=== PATIENT | female | born 1955 ===

== ENCOUNTER 2017-02-09 20:57 | Observation (INO) | payer MEDICAID, OTHER ==
[2017-02-09] MEDS ORDERED: Sodium Chloride 0.9% 1,000 ML IV ONE (22:29)
--- NOTE | 2017-02-09 22:49 | EDM.PDOC ---
ED HPI GENERAL MEDICAL PROBLEM - General Chief Complaint: Gastrointestinal Problem Stated Complaint: FEVER/TROBULE BREATHING/COUGH Time Seen by Provider: 02/09/17 22:30 Source of Information: Reports: Patient History Limitations: Reports: No Limitations - History of Present Illness INITIAL COMMENTS - FREE TEXT/NARRATIVE: History of present illness: [61-year-old female comes in complaining of generalized aches, pains and malaise. Patient acute she's had a cough and thinks might have the flu. Patient is quite hypotensive at 72/50. Patient has a strong odor of urine and stool. Patient is conversant, makes complete sentences and is appropriate. Review of systems: As per history of present illness and below otherwise all systems reviewed and negative. Past medical history: As per history of present illness and as reviewed below otherwise noncontributory. Surgical history: As per history of present illness and as reviewed below otherwise noncontributory. Social history: No reported history of drug or alcohol abuse. Family history: As per history of present illness and as reviewed below otherwise noncontributory. Physical exam: HEENT: Atraumatic, normocephalic, pupils reactive, negative for conjunctival pallor or scleral icterus, mucous membranes moist, throat clear, neck supple, nontender, trachea midline. Lungs: Clear to auscultation, breath sounds equal bilaterally, chest nontender. Heart: S1S2, regular, negative for clicks, rubs, or JVD. Abdomen: Soft, nondistended, nontender. Negative for masses or hepatosplenomegaly. Negative for costovertebral tenderness. Pelvis: Stable nontender. Genitourinary: Deferred. Rectal: Deferred. Extremities: Atraumatic, negative for cords or calf pain. Neurovascular unremarkable. Neuro: Awake, alert, oriented. Cranial nerves II through XII unremarkable. Cerebellum unremarkable. Motor and sensory unremarkable throughout. Exam nonfocal. Patient acknowledges smoking but denies drinking. Patient indicates that she has just recently lost control of her bladder and bowel on this is a new evolution for her with her generalized well-being. Patient responded well to the first liter of normal saline with systolic rising above the 100 systolically, 2nd liter normal saline started at [address] Eddi Fitch called patient admitted to observation status secondary to hypotension rule out sepsis Diagnostics: [CBC, CMP, lactic acid, blood cultures, UA, chest x-ray troponin amylase, lipase ] Therapeutics: [2 L of normal saline, Zofran] Impression: [Hypotension rule out sepsis] Plan: [Admit for observation] Definitive disposition and diagnosis as appropriate pending reevaluation and review of above. 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: Musculoskeletal History: Reports: None Neurological History: Reports: None Psychiatric History: Reports: None Endocrine/Metabolic History: Reports: Hypothyroidism Hematologic History: Reports: None Dermatologic History: Reports: None - Infectious Disease History Infectious Disease History: Reports: Chicken Pox - Past Surgical History Female Surgical History: Reports: None Social & Family History - Family History Family Medical History: Noncontributory - Tobacco Use Smoking Status *Q: Never Smoker - Recreational Drug Use Recreational Drug Use: No ED ROS GENERAL - Review of Systems Review Of Systems: See Below (History of present illness) ED EXAM, GENERAL - Physical Exam Exam: See Below (History of present illness) Course - Vital Signs Last Recorded V/S: Last Vital Signs Temp 37.1 C 02/09/17 22:29 Pulse 86 02/10/17 00:05 Resp 17 02/10/17 00:05 BP 110/52 L 02/10/17 00:05 Pulse Ox 94 L 02/10/17 00:08 - Orders/Labs/Meds Orders: Active Orders 24 hr Category Date Time Status Admission Status [Patient Status] [ADT] Stat ADT 02/10/17 00:13 Ordered EKG Documentation Completion [RC] STAT Care 02/09/17 22:46 Active Chest 1V Frontal [CR] Stat Exams 02/09/17 22:46 Taken CULTURE BLOOD [BC] Stat Lab 02/09/17 22:38 Received CULTURE BLOOD [BC] Stat Lab 02/09/17 22:48 Received TROPONIN I [CHEM] Stat Lab 02/09/17 23:06 Ordered UA W/MICROSCOPIC [URIN] Stat Lab 02/09/17 22:30 Uncollected Piperacillin/Tazobactam [Piperacil-Tazobact] 3.375 gm Med 02/10/17 00:12 Ordered Sodium Chloride 0.9% [Normal Saline] 50 ml IV ONETIME Sodium Chloride 0.9% [Normal Saline] 1,000 ml Med 02/10/17 00:00 Active IV STAT Blood Culture x2 Reflex Set [OM.PC] Stat Oth 02/09/17 22:29 Ordered Medication Orders Sodium Chloride (Normal Saline) 1,000 mls @ 125 mls/hr IV STAT ONE Stop: 02/10/17 07:59 Last Admin: 02/10/17 00:04 Dose: 125 mls/hr Piperacillin Sod/Tazobactam (Sod 3.375 gm/ Sodium Chloride) 50 mls @ 100 mls/ hr IV ONETIME ONE Stop: 02/10/17 00:41 Labs: Laboratory Tests 02/09/17 02/09/17 02/09/17 Range/Units 22:48 22:48 22:48 WBC 2.30 L (4.0-11.0) K/uL RBC 4.48 (4.30-5.90) M/uL Hgb 12.6 (12.0-16.0) g/dL Hct 38.6 (36.0-46.0) % MCV 86.2 (80.0-98.0) fL MCH 28.1 (27.0-32.0) pg MCHC 32.6 (31.0-37.0) g/dL RDW Std Deviation 43.7 (28.0-62.0) fl RDW Coeff of Eduin 14 (11.0-15.0) % Plt Count 132 L (150-400) K/uL MPV 10.70 (7.40-12.00) fL Add Manual Diff YES Neutrophils % (Manual) 57 (48.0-80.0) % Band Neutrophils % 2 % Lymphocytes % (Manual) 37 (16.0-40.0) % Monocytes % (Manual) 4 (0.0-15.0) % Nucleated RBC % 0.0 /100WBC Absolute Seg Neuts 1.3 L (1.4-5.7) Band Neutrophils # 0 Lymphocytes # (Manual) 0.9 (0.6-2.4) Monocytes # (Manual) 0.1 (0.0-0.8) Nucleated RBCs # 0 K/uL Lactate 0.8 (0.20-2.00) mmol/L Sodium 140 (136-146) mmol/L Potassium 3.9 (3.5-5.1) mmol/L Chloride 106 (98-110) mmol/L Carbon Dioxide 23 (21-31) mmol/L BUN 10 (6.0-23.0) mg/dL Creatinine 0.7 (0.6-1.5) mg/dL Est Cr Clr Drug Dosing 77.01 mL/min Estimated GFR (MDRD) > 60.0 ml/min Glucose 96 (60-110) mg/dL Hemoglobin A1c (0.0-6.0) % Calcium 8.7 L (8.8-10.8) mg/dL Total Bilirubin 0.4 (0.1-1.5) mg/dL AST 14 (5-40) IU/L ALT 10 (8-54) IU/L Alkaline Phosphatase 62 (40-150) Creatine Kinase (9-236) IU/L CK-MB (CK-2) (0-6.6) ng/ml Troponin I (0.0-0.29) NG/ML Total Protein 5.9 L (6.0-8.0) g/dL Albumin 3.9 (3.4-4.8) g/dL Globulin 2.0 (2.0-3.5) g/dL Albumin/Globulin Ratio 2.0 (1.3-2.8) 02/09/17 02/09/17 Range/Units 22:48 22:48 WBC (4.0-11.0) K/uL RBC (4.30-5.90) M/uL Hgb (12.0-16.0) g/dL Hct (36.0-46.0) % MCV (80.0-98.0) fL MCH (27.0-32.0) pg MCHC (31.0-37.0) g/dL RDW Std Deviation (28.0-62.0) fl RDW Coeff of Eduin (11.0-15.0) % Plt Count (150-400) K/uL MPV (7.40-12.00) fL Add Manual Diff Neutrophils % (Manual) (48.0-80.0) % Band Neutrophils % % Lymphocytes % (Manual) (16.0-40.0) % Monocytes % (Manual) (0.0-15.0) % Nucleated RBC % /100WBC Absolute Seg Neuts (1.4-5.7) Band Neutrophils # Lymphocytes # (Manual) (0.6-2.4) Monocytes # (Manual) (0.0-0.8) Nucleated RBCs # K/uL Lactate (0.20-2.00) mmol/L Sodium (136-146) mmol/L Potassium (3.5-5.1) mmol/L Chloride (98-110) mmol/L Carbon Dioxide (21-31) mmol/L BUN (6.0-23.0) mg/dL Creatinine (0.6-1.5) mg/dL Est Cr Clr Drug Dosing mL/min Estimated GFR (MDRD) ml/min Glucose (60-110) mg/dL Hemoglobin A1c 5.5 (0.0-6.0) % Calcium (8.8-10.8) mg/dL Total Bilirubin (0.1-1.5) mg/dL AST (5-40) IU/L ALT (8-54) IU/L Alkaline Phosphatase (40-150) Creatine Kinase 74 (9-236) IU/L CK-MB (CK-2) 0.6 (0-6.6) ng/ml Troponin I 0.21 (0.0-0.29) NG/ML Total Protein (6.0-8.0) g/dL Albumin (3.4-4.8) g/dL Globulin (2.0-3.5) g/dL Albumin/Globulin Ratio (1.3-2.8) Meds: Medications Generic Name Dose Route Start Last Admin Trade Name Freq PRN Reason Stop Dose Admin Sodium Chloride 1,000 mls @ 125 mls/hr 02/10/17 00:00 02/10/17 00:04 Normal Saline IV 02/10/17 07:59 125 mls/hr STAT ONE Administration Piperacillin Sod/Tazobactam 50 mls @ 100 mls/hr 02/10/17 00:12 Sod 3.375 gm/ Sodium Chloride IV 02/10/17 00:41 ONETIME ONE Discontinued Medications Generic Name Dose Route Start Last Admin Trade Name Freq PRN Reason Stop Dose Admin Sodium Chloride 1,000 mls @ 999 mls/hr 02/09/17 22:29 02/09/17 22:56 Normal Saline IV 02/09/17 23:29 999 mls/hr STAT ONE Administration Departure - Departure Time of Disposition: 00:16 Disposition: Refer to Observation Condition: Good Clinical Impression: Hypotension - Discharge Information Referrals: PCP,None [Primary Care Provider] - Forms: ED Department Discharge - My Orders Last 24 Hours: My Active Orders 02/09/17 22:29 Blood Culture x2 Reflex Set [OM.PC] Stat 02/09/17 22:30 UA W/MICROSCOPIC [URIN] Stat 02/09/17 22:38 CULTURE BLOOD [BC] Stat 02/09/17 22:48 CULTURE BLOOD [BC] Stat 02/09/17 23:06 TROPONIN I [CHEM] Stat 02/10/17 00:00 Sodium Chloride 0.9% [Normal Saline] 1,000 ml IV STAT 02/10/17 00:12 Piperacillin/Tazobactam [Piperacil-Tazobact] 3.375 gm Sodium Chloride 0.9% [ Normal Saline] 50 ml IV ONETIME 02/10/17 00:13 Admission Status [Patient Status] [ADT] Stat - Assessment/Plan Last 24 Hours: My Active Orders 02/09/17 22:29 Blood Culture x2 Reflex Set [OM.PC] Stat 02/09/17 22:30 UA W/MICROSCOPIC [URIN] Stat 02/09/17 22:38 CULTURE BLOOD [BC] Stat 02/09/17 22:48 CULTURE BLOOD [BC] Stat 02/09/17 23:06 TROPONIN I [CHEM] Stat 02/10/17 00:00 Sodium Chloride 0.9% [Normal Saline] 1,000 ml IV STAT 02/10/17 00:12 Piperacillin/Tazobactam [Piperacil-Tazobact] 3.375 gm Sodium Chloride 0.9% [ Normal Saline] 50 ml IV ONETIME 02/10/17 00:13 Admission Status [Patient Status] [ADT] Stat
[2017-02-09 23:33] LABS: CHLORIDE,CL 106 mmol/L (98-110); SODIUM,NA 140 mmol/L (136-146)
[2017-02-10] MEDS ORDERED: Sodium Chloride 0.9% 1,000 ML IV ONE
[2017-02-10] MEDS ORDERED: Piperacillin/Tazobactam 3.375 GM in Sodium Chloride 0.9% 50 ML IV ONE (00:12)
[2017-02-10] MEDS: Sodium Chloride 0.9% 1,000 ML IV SCH ×3 (01:11→17:09)
[2017-02-10 06:04] LABS: CHLORIDE,CL 112 mmol/L (98-110); SODIUM,NA 142 mmol/L (136-146)
[2017-02-10] MEDS: Piperacillin/Tazobactam 3.375 GM in Sodium Chloride 0.9% 50 ML IV SCH ×3 (07:49→23:46)
--- NOTE | 2017-02-10 08:59 | PCM.HP ---
H&P History of Present Illness - General Date of Service: 02/10/17 Admit Problem/Dx: Admission Diagnosis/Problem Admission Diagnosis/Problem Hypotension Source of Information: Patient History Limitations: Reports: No Limitations - History of Present Illness Initial Comments - Free Text/Narative: This 61 year old female with pmh of hypothyroidism presented to the ED last evening with her brother with complaints of general malaise myalgias and URI symptoms. She reports she was feeling well until Monday after work. She felt exhausted and very sore. She reports laying in bed most of the week and not eating much because she didn't feel hungry and didn't feel well. She reports she had some fevers and chills at home. With cough and running nose. She reports she did not receive the influenza vaccine this year. She works at [employer] and is around many people every day. She denies abdominal pain, black or bloody BMs, no urinary symptoms. No sore throat no ear pain and no chest pain. She reports some shortness of breath with ambulation, which is new. Non productive cough. In the ED leukopenia noted, 2,300, platelets 132, Lymph 43%, Lactate 0.8, BMP WNL. UA negative and CXR negative as well. She was noted to be hypotension, 79/ 32 upon arrival to ED, which improved to 107/48 with 1 L bolus. BC were obtained. She was given Zosyn for suspected bacterial pneumonia and influenza swab was negative. 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 Denies: CAD, Heart Failure , Hypertension, [place] Respiratory History: Reports: None. Denies: Asthma, Croup, PE Gastrointestinal History: Reports: None. 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 Denies: Diabetes, Type II Hematologic History: Reports: None Dermatologic History: Reports: None - Infectious Disease History Infectious Disease History: Reports: Chicken Pox - Past Surgical History Female Surgical History: Reports: None Social & Family History - Family History Family Medical History: Noncontributory - Tobacco Use Smoking Status *Q: Current Every Day Smoker Years of Tobacco use: 40 Packs/Tins Daily: 0.5 Used Tobacco, but Quit: No - Caffeine Use Caffeine Use: Reports: Coffee - Recreational Drug Use Recreational Drug Use: Yes - Living Situation & Occupation Occupation: Employed H&P Review of Systems - Review of Systems: Review Of Systems: See Below General: Reports: Fever, Chills, Malaise, Weakness, Fatigue, Decreased Appetite HEENT: Reports: Rhinitis, Sinus Congestion. Denies: Headaches, Hearing Changes , Sore Throat, Visual Changes Pulmonary: Reports: Shortness of Breath, Cough. Denies: Wheezing, Sputum, Hemoptysis Cardiovascular: Reports: No Symptoms. Denies: Chest Pain, Palpitations, Orthopnea, Edema, Lightheadedness Gastrointestinal: Reports: No Symptoms. Denies: Abdominal Pain, Black Stool, Bloody Stool, Distension, Nausea, Vomiting Genitourinary: Reports: No Symptoms. Denies: Dysuria, Frequency, Burning, Pain , Urgency Musculoskeletal: Reports: No Symptoms. Denies: Neck Pain Psychiatric: Reports: No Symptoms. Denies: Confusion Neurological: Reports: No Symptoms. Denies: Confusion Hematologic/Lymphatic: Reports: Easy Bruising Exam - Exam Exam: See Below - Vital Signs Vital Signs: Last Vital Signs Temp 97.6 F 02/10/17 04:00 Pulse 84 02/10/17 04:00 Resp 18 02/10/17 04:00 BP 106/42 L 02/10/17 04:00 Pulse Ox 96 02/10/17 04:00 Weight: 68.03 kg - Exam Quality Assessment: DVT Prophylaxis. No: Supplemental Oxygen General: Alert, Oriented, Cooperative HEENT: Conjunctiva Clear, Mucosa Moist & [place], Posterior Pharynx Clear, Rhinitis (nares, reddened due to constant wiping of nose.) Neck: Supple, Trachea Midline, Full Range of Motion. No: Lymphadenopathy Lungs: Rhonchi (throughout), Other (dry hacking cough) Cardiovascular: Regular Rate, Regular Rhythm, Normal S1, Normal S2 GI/Abdominal Exam: Normal Bowel Sounds, Soft, Non-Tender, No Organomegaly, No Distention, No Abnormal Bruit, No Mass, Pelvis Stable Back Exam: Normal Inspection, Full Range of Motion, NT Extremities: Normal Inspection, Normal Range of Motion, Non-Tender, No Pedal Edema, Normal Capillary Refill Skin: Petechia (2 .5 in areas noted to L dorsal hand, reports these happened a couple days ago. It tends to happen and she is not sure any injury.) Neuro Extensive - Mental Status: Alert, Oriented x3, Normal Mood/Affect, Normal Cognition Psychiatric: Alert, Normal Affect, Normal Mood - Patient Data Lab Results Last 24 hrs: Laboratory Results - last 24 hr 02/10/17 02/10/17 02/10/17 Range/Units 00:42 04:39 04:39 WBC 1.79 L (4.0-11.0) K/uL RBC 4.09 L (4.30-5.90) M/uL Hgb 11.2 L (12.0-16.0) g/dL Hct 35.4 L (36.0-46.0) % MCV 86.6 (80.0-98.0) fL MCH 27.4 (27.0-32.0) pg MCHC 31.6 (31.0-37.0) g/dL RDW Std Deviation 43.9 (28.0-62.0) fl RDW Coeff of Eduin 14 (11.0-15.0) % Plt Count 114 L (150-400) K/uL MPV 11.10 (7.40-12.00) fL Add Manual Diff YES Neutrophils % (Manual) 52 (48.0-80.0) % Band Neutrophils % 3 % Lymphocytes % (Manual) 43 H (16.0-40.0) % Monocytes % (Manual) 2 (0.0-15.0) % Nucleated RBC % 0.0 /100WBC Absolute Seg Neuts 0.9 L (1.4-5.7) Band Neutrophils # 0.1 Lymphocytes # (Manual) 0.8 (0.6-2.4) Monocytes # (Manual) 0.0 (0.0-0.8) Nucleated RBCs # 0 K/uL Sodium 142 (136-146) mmol/L Potassium 3.9 (3.5-5.1) mmol/L Chloride 112 H (98-110) mmol/L Carbon Dioxide 23 (21-31) mmol/L BUN 9 (6.0-23.0) mg/dL Creatinine 0.6 (0.6-1.5) mg/dL Est Cr Clr Drug Dosing 89.84 mL/min Estimated GFR (MDRD) > 60.0 ml/min Glucose 87 (60-110) mg/dL Calcium 7.9 L (8.8-10.8) mg/dL Total Bilirubin 0.4 (0.1-1.5) mg/dL AST 11 (5-40) IU/L ALT 9 (8-54) IU/L Alkaline Phosphatase 52 (40-150) Total Protein 5.0 L (6.0-8.0) g/dL Albumin 3.3 L (3.4-4.8) g/dL Globulin 1.7 L (2.0-3.5) g/dL Albumin/Globulin Ratio 1.9 (1.3-2.8) Urine Color YELLOW Urine Appearance HAZY Urine pH 5.5 (5.0-8.0) Ur Specific Taylor 1.010 (1.001-1.035) Urine Protein NEGATIVE (NEGATIVE) mg/dL Urine Glucose (UA) NEGATIVE (NEGATIVE) mg/dL Urine Ketones NEGATIVE (NEGATIVE) mg/dL Urine Occult Blood MODERATE (NEGATIVE) Urine Nitrite NEGATIVE (NEGATIVE) Urine Bilirubin NEGATIVE (NEGATIVE) Urine Urobilinogen 0.2 (<2.0) EU/dL Ur Leukocyte Esterase NEGATIVE (NEGATIVE) Urine RBC 3-5 (0-2/HPF) Urine WBC 0-2 (0-5/HPF) Ur Epithelial Cells FEW (NONE-FEW) Urine Bacteria FEW (NEGATIVE) Result Diagrams: 02/10/17 04:39 02/10/17 04:39 *Q Meaningful Use (ADM) - VTE *Q VTE Criteria *Q: - Stroke *Q Stroke Criteria *Q: - AMI *Q AMI Criteria *Q: - Problem List (1) Hypotension SNOMED Code(s): 92793240 ICD Code: I95.9 - HYPOTENSION, UNSPECIFIED Status: Acute Current Visit: Yes (2) Viral respiratory illness SNOMED Code(s): 253526082 ICD Code: J98.8 - OTHER SPECIFIED RESPIRATORY DISORDERS; B97.89 - OTH VIRAL AGENTS THE CAUSE OF DISEASES CLASSD [id number] Status: Acute Current Visit: Yes (3) Dehydration SNOMED Code(s): 00451024 ICD Code: E86.0 - DEHYDRATION Status: Acute Current Visit: Yes (4) Thrombocytopenia SNOMED Code(s): 228348093 ICD Code: D69.6 - THROMBOCYTOPENIA, UNSPECIFIED Status: Acute Current Visit: Yes (5) Hypothyroid SNOMED Code(s): 94586497 ICD Code: E03.9 - HYPOTHYROIDISM, UNSPECIFIED Status: Chronic Current Visit: Yes Qualifiers: Hypothyroidism type: unspecified Qualified Code(s): E03.9 - Hypothyroidism , unspecified Problem List Initiated/Reviewed/Updated: Yes Orders Last 24hrs: Active Orders 24 hr Category Date Time Status Regular Diet [DIET] Diet 02/10/17 Breakfast Active Piperacillin/Tazobactam [Piperacil-Tazobact] 3.375 gm Med 02/10/17 08:00 Active Sodium Chloride 0.9% [Normal Saline] 50 ml IV Q8H Sodium Chloride 0.9% [Normal Saline] 1,000 ml Med 02/10/17 00:45 Active IV ASDIRECTED Medication Orders Sodium Chloride (Normal Saline) 1,000 mls @ 125 mls/hr IV ASDIRECTED ZOE Last Admin: 02/10/17 07:53 Dose: 125 mls/hr Infusion: 02/10/17 07:53 Dose: 125 mls/hr Admin: 02/10/17 01:11 Dose: 125 mls/hr Piperacillin Sod/Tazobactam (Sod 3.375 gm/ Sodium Chloride) 50 mls @ 100 mls/ hr IV Q8H [facility] Last Admin: 02/10/17 07:49 Dose: 100 mls/hr Assessment/Plan Comment:: This 61 year old female admitted with suspected respiratory viral illness and hypotension and dehydration 1. Respiratory viral illness: BC pending. CXR again this am is negative. Influenza negative. Covering with Zosyn due to leukopenia and suspected bacterial pneumonia. WBC 1,790 today. bandemia of 3. 2. Hypotension: Improving. I L bolus in ED and conitnued maintenance fluids NS 125 overnight. BPs 100-110/60s. Will continue with fluids. 3. Thrombocytopenia: Likley viral illness induced. Will monitor closely. 4. Hypothyroidism: Continue Levothyroxine VTE prophylaxis: SCDs only due to thrombocytopenia. Dispo: 1-2 days pending improvement and BC
[2017-02-10] MEDS ORDERED: Ondansetron 4 MG/2 ML SDV IVPUSH PRN (10:26)
[2017-02-10] MEDS ORDERED: Acetaminophen 325 MG Tab PO PRN (10:26)
--- NOTE | 2017-02-10 11:08 | CR ---
EXAMINATION: Two-view chest (PA and Lateral views). HISTORY: Cough. FINDINGS: The trachea is midline. The cardiomediastinal silhouette is within normal limits. No pulmonary infilt rates, effusions or pneumothorax. Chronic interstitial prominence. Degenerative changes noted within the shoulders and thoracic spine. IMPRESSION: No acute cardiopulmonary process.
--- NOTE | 2017-02-10 16:21 | CR ---
EXAM DATE: 02/10/17 PATIENT'S AGE: 61 Patient: JOSE RESTREPO Facility: [place], [place] Site . Site : 1955 Study: XRay Chest [id number]/[id number] 11:01:34 PM Ordering Physician: Doctor Santos Final Report: INDICATION: fever, cough, sweats, cough x3 days TECHNIQUE: Chest 1 view. COMPARISON: None FINDINGS: Cardiovascular and mediastinum: Heart size and vasculature are normal in caliber and appearance. Mediastinum is within normal limits. Lungs and pleural space: Lungs are clear. No sign of infiltrate or mass. No sign of pleural effusion. No pneumothorax. Bones and soft tissues: No significant findings. IMPRESSION: Unremarkable chest. Dictated by: Romero Reardon MD @ 02/09/2017 23:24:54 (Electronic Signature) Report Signed by Proxy. NY[facility] LANGONE HEALTH SYSTEMDaniela
[2017-02-10] MEDS: Nicotine 14 MG/24 Hr Patch TRDERM SCH (19:35)
[2017-02-11] MEDS: Sodium Chloride 0.9% 1,000 ML IV SCH (01:37)
[2017-02-11 07:14] LABS: CHLORIDE,CL 110 mmol/L (98-110); SODIUM,NA 142 mmol/L (136-146)
[2017-02-11] MEDS ORDERED: Levothyroxine 125 MCG Tab PO SCH (07:30)
[2017-02-11] MEDS: Piperacillin/Tazobactam 3.375 GM in Sodium Chloride 0.9% 50 ML IV SCH (08:02)
[2017-02-11] MEDS: Nicotine 14 MG/24 Hr Patch TRDERM SCH (08:02)
--- NOTE | 2017-02-11 10:06 | PCM.DCSUM1 ---
Discharge Summary - Hospital Course HPI Initial Comments: 61 yo female admitted 02/12/16 for suspected viral respiratory illnees and hypotension secondary to dehydration with pmh of hypothyroidism. Brief History: Noé intially presed to ED on evening of 02/10/16 with complaints of general malaise myalgias and URI symptoms. She reported feeling well until Monday after work. She felt exhausted and very sore. She reported laying in bed most of the week and not eating much because she didn't feel hungry and didn't feel well. She also stated she had some fevers and chills at home with associated cough and running nose. She stated she did not receive the influenza vaccine this year. She works at [employer] and is around many people every day. She denied abdominal pain, black or bloody BMs, no urinary symptoms. No sore throat no ear pain and no chest pain. She reported some shortness of breath with ambulation, which was new. Non productive cough. - Discharge Data Discharge Date: 02/11/17 Discharge Disposition: Home, Self-Care 01 Condition: Good - Patient Instructions Diet: Usual Diet as Tolerated Activity: Rest and Relax Today Driving: Do Not Drive Showering/Bathing: June Shower Notify Provider of: Fever, Increased Pain, Nausea and/or Vomiting Other/Special Instructions: Follow-up with PCP Dr. Roche. Do not return to work until at least Monday of next week. - Discharge Plan Prescriptions/Med Rec: Amoxicillin/Clavulanate K [Augmentin 875 MG/125 MG] 1 tab PO Q12HR #6 tablet Home Medications: Home Meds Levothyroxine 125 mcg PO ACBREAKFAST 02/09/17 [History] Amoxicillin/Clavulanate K [Augmentin 875 MG/125 MG] 1 tab PO Q12HR #6 tablet 07/24 [Rx] Patient Handouts: Hypotension, [id number] Referrals: Sánchez Michaud [Resident] - 02/15/17 2:30 pm - Discharge Summary/Plan Comment DC Time >30 min.: Yes Discharge Summary/Plan Comment: 61 yo female admitted 02/12/16 for suspected viral respiratory illnees and hypotension secondary to dehydration with pmh of hypothyroidism. Noé intially presed to ED on evening of 02/10/16 with complaints of general malaise myalgias and URI symptoms. She reported feeling well until Monday after work. She felt exhausted and very sore. She reported laying in bed most of the week and not eating much because she didn't feel hungry and didn't feel well. She also stated she had some fevers and chills at home with associated cough and running nose. She stated she did not receive the influenza vaccine this year. She works at [employer] and is around many people every day. She denied abdominal pain, black or bloody BMs, no urinary symptoms. No sore throat no ear pain and no chest pain. She reported some shortness of breath with ambulation, which was new. Non productive cough. In the ED leukopenia noted, 2,300, platelets 132, Lymph 43%, Lactate 0.8, BMP WNL. UA negative and CXR negative as well. She was noted to be hypotension, 79/ 32 upon arrival to ED, which improved to 107/48 with 1 L bolus. BC were obtained. She was given Zosyn for suspected bacterial pneumonia and influenza swab was negative. Repeat chest x-ray on day one of her stay was again unremarkable. She did well will IVF rehydration and blood cultures were neg x1 day on day of discharge. Patient received a total of 2 days of Zosyn and was discharge with an additional 3 days of augmentin, however this was most likely viral respiratory illness. She was discharged in good condition on day 2 with follow-up appointment with her PCP Dr. Roche and Augmentin for 3 days. She was instructed to return to ED if she had any return of her symptoms. - General Info Date of Service: 02/11/17 Admission Dx/Problem (Free Text: Admission Diagnosis/Problem Admission Diagnosis/Problem Hypotension Subjective Update: Feeling much better this morning. No nausea or vomiting. Fatigue improved. Ready to go home. Functional Status: Reports: Pain Controlled, Tolerating Diet - Review of Systems General: Denies: Fever, Weakness, Fatigue HEENT: Denies: Headaches, Visual Changes Pulmonary: Denies: Shortness of Breath, Hemoptysis Cardiovascular: Denies: Chest Pain, Edema Gastrointestinal: Denies: Abdominal Pain, Diarrhea, Nausea, Vomiting Genitourinary: Denies: Dysuria, Hematuria Musculoskeletal: Denies: Neck Pain, Leg Pain Skin: Denies: Cyanosis Neurological: Denies: Confusion, Dizziness, Headache Psychiatric: Denies: Confusion - Patient Data Vitals - Most Recent: Last Vital Signs Temp 99.4 F 02/11/17 04:00 Pulse 62 02/11/17 04:00 Resp 18 02/11/17 04:00 BP 101/55 L 02/11/17 04:00 Pulse Ox 96 02/11/17 04:00 Weight - Most Recent: 68.03 kg I&O - Last 24 hours: Intake & Output 02/10/17 02/11/17 02/11/17 22:59 06:59 14:59 Intake Total 2554 1375 Output Total 1000 2150 Balance 1554 -775 Lab Results - Last 24 hrs: Laboratory Results - last 24 hr 02/11/17 02/11/17 Range/Units 06:08 06:08 WBC 2.11 L (4.0-11.0) K/uL RBC 4.12 L (4.30-5.90) M/uL Hgb 11.5 L (12.0-16.0) g/dL Hct 35.6 L (36.0-46.0) % MCV 86.4 (80.0-98.0) fL MCH 27.9 (27.0-32.0) pg MCHC 32.3 (31.0-37.0) g/dL RDW Std Deviation 44.1 (28.0-62.0) fl RDW Coeff of Eduin 14 (11.0-15.0) % Plt Count 109 L (150-400) K/uL MPV 11.00 (7.40-12.00) fL Neut % (Auto) 35.6 L (48.0-80.0) % Lymph % (Auto) 50.7 H (16.0-40.0) % Hughes % (Auto) 10.9 (0.0-15.0) % Eos % (Auto) 2.8 (0.0-7.0) % Baso % (Auto) 0.0 (0.0-1.5) % Neut # (Auto) 0.8 L (1.4-5.7) K/uL Lymph # (Auto) 1.1 (0.6-2.4) K/uL Hughes # (Auto) 0.2 (0.0-0.8) K/uL Eos # (Auto) 0.1 (0.0-0.7) K/uL Baso # (Auto) 0.0 (0.0-0.1) K/uL Nucleated RBC % 0.0 /100WBC Nucleated RBCs # 0 K/uL Sodium 142 (136-146) mmol/L Potassium 3.8 (3.5-5.1) mmol/L Chloride 110 (98-110) mmol/L Carbon Dioxide 23 (21-31) mmol/L BUN 7 (6.0-23.0) mg/dL Creatinine 0.6 (0.6-1.5) mg/dL Est Cr Clr Drug Dosing 89.84 mL/min Estimated GFR (MDRD) > 60.0 ml/min Glucose 82 (60-110) mg/dL Calcium 8.3 L (8.8-10.8) mg/dL Med Orders - Current: Current Medications Acetaminophen (Tylenol) 650 mg PO Q4H PRN PRN Reason: Pain (mild 1-3) Sodium Chloride (Normal Saline) 1,000 mls @ 125 mls/hr IV ASDIRECTED [facility] Last Admin: 02/11/17 01:37 Dose: 125 mls/hr Piperacillin Sod/Tazobactam (Sod 3.375 gm/ Sodium Chloride) 50 mls @ 100 mls/ hr IV Q8H [facility] Last Admin: 02/11/17 08:02 Dose: 100 mls/hr Levothyroxine Sodium (Levothyroxine) 125 mcg PO ACBREAKFAST [facility] Last Admin: 02/11/17 07:26 Dose: Not Given Nicotine (Habitrol) 14 mg TRDERM DAILY [facility] Last Admin: 02/11/17 08:02 Dose: 14 mg Ondansetron HCl (Zofran) 4 mg IVPUSH Q4H PRN PRN Reason: Nausea Discontinued Medications Sodium Chloride (Normal Saline) 1,000 mls @ 999 mls/hr IV STAT ONE Stop: 02/09/17 23:29 Last Admin: 02/09/17 22:56 Dose: 999 mls/hr Sodium Chloride (Normal Saline) 1,000 mls @ 125 mls/hr IV STAT ONE Stop: 02/10/17 07:59 Last Admin: 02/10/17 00:04 Dose: 125 mls/hr Piperacillin Sod/Tazobactam (Sod 3.375 gm/ Sodium Chloride) 50 mls @ 100 mls/ hr IV ONETIME ONE Stop: 02/10/17 00:41 Last Admin: 02/10/17 00:37 Dose: 100 mls/hr - Exam Quality Assessment: Reports: DVT Prophylaxis General: Reports: Alert, Oriented, Cooperative, No Acute Distress HEENT: Reports: Pupils Equal, Pupils Reactive, EOMI, Mucous Membr. Moist/[place] Neck: Reports: Supple Lungs: Reports: Clear to Auscultation, Normal Respiratory Effort Cardiovascular: Reports: Regular Rate, Regular Rhythm GI/Abdominal Exam: Normal Bowel Sounds, Soft, Non-Tender, No Organomegaly, No Distention Back Exam: Reports: Normal Inspection Extremities: Normal Inspection, Normal Range of Motion, Non-Tender, No Pedal Edema, Normal Capillary Refill Skin: Reports: Warm, Dry, Intact Neurological: Reports: No New Focal Deficit Psy/Mental Status: Reports: Alert, Normal Affect, Normal Mood *Q Meaningful Use (DIS) - VTE *Q VTE Criteria *Q: - Stroke *Q Stroke Criteria *Q: - AMI *Q AMI Criteria *Q:
== END 2017-02-11 12:15 | disposition home or self-care (01) ==
LOC: MW.ED 20:57 → MW.MS 02-10 00:13
PROVIDERS: ADMIT Family Medicine; ATTEND Family Medicine
DX: I95.9 Hypotension, unspecified (principal); J98.8 Other specified respiratory disorders; E86.0 Dehydration; D69.6 Thrombocytopenia, unspecified; E03.9 Hypothyroidism, unspecified; Z79.899 Other long term (current) drug therapy; Z79.2 Long term (current) use of antibiotics
CPT/HCPCS: 36415; 71045; 71046; 80048; 80053; 81001; 82550; 82553; 83036; 83605; 84484; 85025; 87040; 87804; 93005; 96361; 96365; 99285; A9270; J2543; J7040; J7050; 96366; 99284; G0378